=== PATIENT | male | born 1935 | race Caucasian/White ===

== ENCOUNTER 2017-06-29 22:51 | Inpatient (IN) | payer MEDICARE, BC ==
[~2017-06-29] VITALS: Ht 167.6 cm; Wt 74.2 kg
--- NOTE | 2017-06-29 23:14 | EKG ---
[address] [address] Test Date: 2017-06-29 Test Time: 23:03:03 Pat Name: TEVIN MONTENEGRO Department: Room: Gender: M Solar Sales Advisor: ELINA : 1935 Requested By: HYUN CLAIRE Order Number: [id number] Reading MD: Measurements Intervals Olivia Rate: 121 P: NE: QRS: -62 QRSD: 116 T: 95 QT: 340 QTc: 486 Interpretive Statements IRREGULAR RHYTHM, NO P-WAVE FOUND VENTRICULAR PREMATURE COMPLEX(ES) ABNORMAL LEFT AXIS DEVIATION R-S TRANSITION ZONE IN V LEADS DISPLACED TO THE LEFT QRS(T) CONTOUR ABNORMALITY CONSIDER ANTEROLATERAL MYOCARDIAL DAMAGE ABNORMAL ECG RI6.01 No previous ECG available for comparison
[2017-06-29] MEDS ORDERED: IV NORMAL SALINE 1,000ML 1,000 ML IV ONE (23:30)
[2017-06-29 23:54] LABS: BASO % 0 % (0-3); EOS # 0.2 x10^3/uL (0.0-0.7); EOS % 3 % (0-3); HEMATOCRIT 43.8 % (39.0-53.0); HEMOGLOBIN 14.8 g/dL (13.0-17.5); LYMPH # 3.5 x10^3/uL (1.0-4.8); LYMPH % 47 % (24-48); MEAN CORPUSCULAR HEMOGLOBIN 32 pg (25-35); MEAN CORPUSCULAR HGB CONC 34 g/dL (31-37); MEAN CORPUSCULAR VOLUME 95 fL (79-100); MONO # 0.7 x10^3/uL (0.0-1.1); MONO % 10 % (0-9); NEUT # 2.9 x10^3uL (1.8-7.7); NEUT % 40 % (31-73); PLATELET COUNT 146 x10^3/uL (140-400); RED CELL DISTRIBUTION WIDTH 13.7 % (11.5-14.5); WHITE BLOOD COUNT 7.4 x10^3/uL (4.0-11.0)
[2017-06-29 23:58] LABS: CREATININE 1.1 mg/dL (0.7-1.3); GFR 64.6; POTASSIUM 3.8 mmol/L (3.5-5.1)
--- NOTE | 2017-06-30 00:01 | PHYS DOC ---
Past History Past Medical History: A-Fib, Angina, CAD, Gallstones, High Cholesterol, Hypertension, AL Past Surgical History: Cholecystectomy, Coronary Bypass Surgery, Pacemaker Alcohol Use: None Drug Use: None Adult General Chief Complaint Chief Complaint: Palpitations HPI HPI 81-year-old male with an extensive cardiac history including known coronary artery disease with prior CABG, prior AL, pacemaker in place, atrial fibrillation on eliquis with which he is compliant. Patient was at his baseline at home when he perceived onset of palpitations and rapid heartbeat. When the heart rate seemed fast as patient had some very mild shortness of breath which is now resolved. He has an irregular mild tachycardia in triage. No chest pain at any time. No recent illness and patient otherwise feels baseline. Specifically he's had no recent exertional symptoms whatsoever Review of Systems Review of Systems Constitutional: Denies fever or chills [] Eyes: Denies change in visual acuity, redness, or eye pain [] HENT: Denies nasal congestion or sore throat [] Respiratory: Denies cough or shortness of breath [] Cardiovascular: No additional information not addressed in HPI [] GI: Denies abdominal pain, nausea, vomiting, bloody stools or diarrhea [] : Denies dysuria or hematuria [] Musculoskeletal: Denies back pain or joint pain [] Integument: Denies rash or skin lesions [] Neurologic: Denies headache, focal weakness or sensory changes [] Endocrine: Denies polyuria or polydipsia [] All other systems were reviewed and found to be within normal limits, except as documented in this note. Current Medications Current Medications Current Medications Medications (Trade) Dose Ordered Sig/Adonay Start Time Stop Time Status Last Admin Dose Admin Sodium Chloride 1,000 ml @ 125 mls/hr 1X ONCE 06/29/17 23:30 06/30/17 07:29 Allergies Allergies Allergies Coded Allergies Type Severity Reaction Last Updated Verified sotalol Allergy Intermediate Rash 06/29/17 Yes Physical Exam Physical Exam Well-appearing elderly male no acute distress. He has a mild tachycardia in the 120s with an irregularly irregular rhythm. His exam is otherwise completely benign Constitutional: Well developed, well nourished, no acute distress, non-toxic appearance. [] HENT: Normocephalic, atraumatic, bilateral external ears normal, oropharynx moist, no oral exudates, nose normal. [] Eyes: PERRLA, EOMI, conjunctiva normal, no discharge. [] Neck: Normal range of motion, no tenderness, supple, no stridor. [] Cardiovascular: As above Lungs & Thorax: Bilateral breath sounds clear to auscultation [] Abdomen: Bowel sounds normal, soft, no tenderness, no masses, no pulsatile masses. [] Skin: Warm, dry, no erythema, no rash. [] Back: No tenderness, no CVA tenderness. [] Extremities: No tenderness, no cyanosis, no clubbing, ROM intact, no edema. [] Neurologic: Alert and oriented X 3, normal motor function, normal sensory function, no focal deficits noted. [] Psychologic: Affect normal, judgement normal, mood normal. [] Current Patient Data Vital Signs Vital Signs Date Time Temp Pulse Resp B/P (MAP) Pulse Ox O2 Delivery O2 Flow Rate FiO2 06/29/17 22:55 98.0 130 20 94 Room Air EKG EKG EKG with irregularly irregular rhythm with a ventricular rate of 121. Left axis deviation and nonspecific ST and T-wave findings no STEMI interpreted by me.[] Radiology/Procedures Radiology/Procedures Chest x-ray with chronic changes sternal wires right diaphragmatic invagination and pacemaker in place with leads appearing to be continuous. No acute disease interpreted by me[] Course & Med Decision Making Course & Med Decision Making Pertinent Labs and Imaging studies reviewed. (See chart for details) Patient with atrial fibrillation with rapid ventricular response. Known history of atrial fibrillation for which patient is anticoagulated without gross. He has no evidence of acute coronary syndrome clinically. After initial valuation patient's heart rate spontaneously converted to a paced rhythm in the 70s. He continues to be asymptomatic as he was upon my exam initially. Full workup pending. Given patient's prehospital symptoms of dyspnea with initial symptoms, will anticipate inpatient admission for full workup, serial troponins, rate control and atrial fibrillation treatment as needed, and cardiology consultation. Patient remains stable on multiple re-evaluations prior to admission. Troponin borderline elevated at 0.06 however patient without any symptoms of acute coronary syndrome. 500 mL normal saline bolus will be administered to address borderline systolic blood pressure of 96. Case discussed with Dr. Hammond cardiology on-call for the patient's psychotherapist counselor Dr. Malone. Dr. Hammond states that their service does not provide consultative care at [facility] and he was informed of the details the case as a courtesy. Case discussed with Dr. Zhang hospitalist on-call who is aware the history and findings and agrees with inpatient admission to a telemetry bed for continued workup and care as well as consultation to Dr. ROACH in the morning. Critical care 38 minutes Dragon Disclaimer Dragon Disclaimer This electronic medical record was generated, in whole or in part, using a voice recognition dictation system. Departure Departure: Impression: Primary Impression: Atrial fibrillation with rapid ventricular response Additional Impression: Heart palpitations Disposition: ADMITTED INPATIENT Admitting Physician: Kenrick Zhang Condition: IMPROVED Referrals: PCP,UNKNOWN (PCP) Problem Qualifiers HYUN CLAIRE MD Jun 30, 2017 00:01
[2017-06-30] MEDS ORDERED: ASPIRIN 81 MG TAB.CHEW ONE (00:50)
[2017-06-30] MEDS ORDERED: IV NORMAL SALINE 500ML 500 ML IV ONE (01:00)
[2017-06-30] MEDS ORDERED: IV NORMAL SALINE 1,000ML 1,000 ML IV ONE (01:00)
[2017-06-30] MEDS ORDERED: ASPIRIN 81 MG TAB.CHEW PO ONE (01:00)
[2017-06-30] MEDS ORDERED: IV NORMAL SALINE 1,000ML 500 ML IV ONE (01:00)
--- NOTE | 2017-06-30 01:14 | EKG ---
[address] [address] Test Date: 2017-06-29 Test Time: 23:17:28 Pat Name: TEVIN MONTENEGRO Department: Room: Gender: M River Rafting Guide: ELINA : 1935 Requested By: HYUN CLAIRE Order Number: [id number] Reading MD: Measurements Intervals [place] Rate: 73 P: 0 PA: 78 QRS: -99 QRSD: 198 T: 95 QT: 426 QTc: 473 Interpretive Statements SINUS RHYTHM ATRIAL PREMATURE COMPLEX(ES) ABNORMAL RIGHT SUPERIOR AXIS DEVIATION NON SPECIFIC INTRAVENTRICULAR BLOCK RVH WITH REPOLARIZATION ABNORMALITY QRS(T) CONTOUR ABNORMALITY CONSISTENT WITH INFERIOR INFARCT POSSIBLY RECENT ABNORMAL ECG RI6.01 No previous ECG available for comparison
[2017-06-30] MEDS ORDERED: ONDANSETRON PF 4 MG/2 ML VIAL. IV PRN (01:15)
[2017-06-30 02:02] VITALS: BP 105/74
[2017-06-30] MEDS ORDERED: APIX5TAB3 PO (02:54)
[2017-06-30] MEDS ORDERED: ATOR20TA PO (02:54)
[2017-06-30] MEDS ORDERED: MULT1TAB97 PO (02:54)
[2017-06-30] MEDS ORDERED: DIPH25CA58 PO (02:54)
[2017-06-30] MEDS ORDERED: EZET10TA18 PO (02:54)
[2017-06-30] MEDS ORDERED: LISI2.5T PO (02:54)
[2017-06-30] MEDS ORDERED: CARV12.5 PO (02:54)
[2017-06-30] MEDS: IV NORMAL SALINE 1,000ML 1,000 ML IV SCH ×2 (04:03→09:23)
[2017-06-30 05:08] VITALS: BP 101/67
--- NOTE | 2017-06-30 08:16 | RAD ---
AP portable chest radiograph 06/29/2017 Clinical History: History of heart disease. Pacemaker. An AP portable erect digital radiograph of the chest was obtained. Comparison is made to a CT scan of the chest dated 03/23/2009. Surgical changes are seen consistent with a CABG procedure. A pacemaker overlies the right anterior chest. Leads extends to overlie the right atrium and right ventricle of the heart. Cardiac silhouette is mildly enlarged. The thoracic aorta is tortuous. Atherosclerotic calcification of the thoracic aorta is seen. No acute pulmonary infiltrate is seen. No pleural effusion or pneumothorax is noted. Degenerative changes are seen involving the thoracic spine and both shoulders. Impression: No acute abnormality is seen.
[2017-06-30] MEDS ORDERED: MULTIVITAMIN with MINERAL TABLET. PO SCH (09:00)
[2017-06-30] MEDS ORDERED: APIXABAN 5 MG TABLET. PO SCH (09:00)
[2017-06-30] MEDS ORDERED: LISINOPRIL 2.5 MG TABLET PO SCH (09:00)
[2017-06-30] MEDS ORDERED: CARVEDILOL 12.5 MG TABLET PO SCH (09:30)
[2017-06-30 11:22] VITALS: BP 101/65
--- NOTE | 2017-06-30 11:53 | PDOC2 ---
CONSULT Date of Admission DATE: 06/30/17 TIME: 11:53 Reason for Consult: Atrial fibrillation Referring Physician: Dr. Zhang Chief Complaint Funny feeling in chest Source: Chart review, Patient Problem List Problems Medical Problems: (1) Atrial fibrillation with rapid ventricular response Status: Acute (2) Heart palpitations Status: Acute History of Present Illness 81-year-old male with history of coronary artery disease s/p coronary artery bypass surgery in 2008 and permanent pacemaker implantation in 2009 who usually follows with Dr. Trinidad from [facility] presented stating that he had a funny feeling in chest and was found to be in atrial fibrillation with rapid ventricular response. He converted to sinus rhythm spontaneously in the ED. He is presently feeling much better. He denied any orthopnea/PND, chest pain or syncope. Past Medical History Paroxysmal atrial fibrillation Hypertension Hyperlipidemia Coronary artery disease s/p CABG Sick sinus syndrome s/p permanent pacemaker implantation (? Biventricular pacemaker/CLINICAL AUDIOLOGIST-P based on patient's description of the device) Benign prostatic hypertrophy Past Surgical History Coronary artery bypass surgery Family History Not contributory Social History Patient is a nondrinker and nonsmoker Current Medications Current Medications Sodium Chloride 1,000 ml @ 125 mls/hr 1X ONCE IV Last administered on at 23:45; Start 06/29/17 at 23:30; Stop 06/30/17 at 07:29; Status DC Aspirin (Children'S Aspirin) 81 mg STK-MED ONCE .ROUTE ; Start 06/30/17 at 00:50 ; Stop 06/30/17 at 00:51; Status DC Aspirin (Children'S Aspirin) 324 mg 1X ONCE PO Last administered on 06/30/17at 00:57; Start 06/30/17 at 01:00; Stop 06/30/17 at 01:17; Status DC Sodium Chloride 500 ml @ 500 mls/hr 1X ONCE IV Last administered on at 00:57; Start 06/30/17 at 01:00; Stop 06/30/17 at 01:59; Status DC Sodium Chloride 1,000 ml @ 1,000 mls/hr 1X ONCE IV ; Start 06/30/17 at 01:00; Stop 06/30/17 at 01:59; Status DC Sodium Chloride 500 ml @ 500 mls/hr 1X ONCE IV ; Start 06/30/17 at 01:00; Stop 06/30/17 at 01:59; Status DC Ondansetron HCl (Zofran) 4 mg PRN Q4HRS PRN IV NAUSEA/VOMITING; Start 06/30/17 at 01:15; Stop 07/01/17 at 01:14 Sodium Chloride 1,000 ml @ 125 mls/hr Q8H IV Last administered on 06/30/17at 09 :23; Start 06/30/17 at 01:30; Stop 07/01/17 at 01:29 Apixaban (Eliquis) 5 mg BID PO Last administered on 06/30/17at 09:20; Start at 09:00 Atorvastatin Calcium (Lipitor) 20 mg QHS PO ; Start 06/30/17 at 21:00 Carvedilol (Coreg) 12.5 mg BIDWMEALS PO Last administered on 06/30/17at 09:24; Start 06/30/17 at 09:30 Diphenhydramine HCl (Benadryl) 25 mg QHS PO ; Start 06/30/17 at 21:00 EZETIMIBE (Zetia) 10 mg QHS PO ; Start 06/30/17 at 21:00 Lisinopril (Prinivil) 2.5 mg BID PO Last administered on 06/30/17at 09:20; Start 06/30/17 at 09:00 Multivitamins/ Calcium (Thera-M Plus) 1 tab DAILY PO Last administered on at 09:20; Start 06/30/17 at 09:00 Active Scripts Active Reported Daily Multiple Vitamin (Multivitamin) 1 Each Tablet 1 Each PO DAILY Lisinopril 2.5 Mg Tablet 2.5 Mg PO BID Zetia (Ezetimibe) 10 Mg Tablet 10 Mg PO QHS Eliquis (Apixaban) 5 Mg Tablet 5 Mg PO BID Coreg (Carvedilol) 12.5 Mg Tablet 12.5 Mg PO BIDWMEALS Benadryl (Diphenhydramine Hcl) 25 Mg Capsule 20 Mg PO QHS Lipitor (Atorvastatin Calcium) 20 Mg Tablet 20 Mg PO QHS Allergies: Coded Allergies: sotalol (Verified Allergy, Intermediate, Rash, 06/29/17) also swelling PSYCHOLOGICAL ROS: No: Hallucinations Eyes: No: Loss of vision HEENT: No: Epistaxis Respiratory: No: Hemoptysis, Shortness of breath Cardiovascular: yes: Palpitations, No: Chest Pain Gastrointestinal: No: Vomiting, Diarrhea Genitourinary: No: [place] Neurological: No: Seizures Skin: No: Rash General: Alert, No acute distress HEENT: Atraumatic, PERRLA Lungs: Clear to auscultation Heart: Regular rate Abdomen: Soft, No tenderness Extremities: No edema Psych/Mental Status: Mood NL VITALS Vital Signs Date Time Temp Pulse Resp B/P (MAP) Pulse Ox O2 Delivery O2 Flow Rate FiO2 06/30/17 11:22 98.3 70 20 101/65 (77) 96 Room Air Labs Laboratory Tests Test 06/29/17 23:40 06/30/17 04:05 06/30/17 07:20 White Blood Count 7.4 x10^3/uL (4.0-11.0) Red Blood Count 4.60 x10^6/uL (4.30-5.70) Hemoglobin 14.8 g/dL (13.0-17.5) Hematocrit 43.8 % (39.0-53.0) Mean Corpuscular Volume 95 fL (79-100) Mean Corpuscular Hemoglobin 32 pg (25-35) Mean Corpuscular Hemoglobin Concent 34 g/dL (31-37) Red Cell Distribution Width 13.7 % (11.5-14.5) Platelet Count 146 x10^3/uL (140-400) Neutrophils (%) (Auto) 40 % (31-73) Lymphocytes (%) (Auto) 47 % (24-48) Monocytes (%) (Auto) 10 % (0-9) Eosinophils (%) (Auto) 3 % (0-3) Basophils (%) (Auto) 0 % (0-3) Neutrophils # (Auto) 2.9 x10^3uL (1.8-7.7) Lymphocytes # (Auto) 3.5 x10^3/uL (1.0-4.8) Monocytes # (Auto) 0.7 x10^3/uL (0.0-1.1) Eosinophils # (Auto) 0.2 x10^3/uL (0.0-0.7) Basophils # (Auto) 0.0 x10^3/uL (0.0-0.2) Sodium Level 143 mmol/L (136-145) Potassium Level 3.8 mmol/L (3.5-5.1) Chloride Level 104 mmol/L (98-107) Carbon Dioxide Level 30 mmol/L (21-32) Anion Gap 9 (6-14) Blood Urea Nitrogen 19 mg/dL (8-26) Creatinine 1.1 mg/dL (0.7-1.3) Estimated GFR (Cockcroft-Gault) 64.6 Glucose Level 104 mg/dL (70-99) Calcium Level 9.0 mg/dL (8.5-10.1) Troponin I Quantitative 0.060 ng/mL (0-0.055) 0.064 ng/mL (0-0.055) 0.070 ng/mL (0-0.055) Assessment/Plan 1. Paroxysmal atrial fibrillation presenting with atrial fibrillation with RVR , presently in paced rhythm. Continue Eliquis for stroke prophylaxis. Patient would benefit from either amiodarone for antiarrhythmic therapy or EP referral for ablation therapy. I would defer this to his primary chainstitch hemmer Dr. Trinidad who he is already scheduled to see later this week. 2. Coronary artery disease s/p coronary artery bypass surgery, clinically stable. Slight troponin elevation probably secondary to RVR. Doubt ACS. Ischemic evaluation the formal stress test could be considered as an outpatient if not done recently. Continue current secondary prevention measures. 3. Sick sinus syndrome s/p permanent pacemaker (? CLINICAL AUDIOLOGIST-P) implantation, clinically stable 4. Hypertension: Well-controlled 5. Hyperlipidemia: Statins Thank you for your consultation Problems: HOMER ROACH MD Jun 30, 2017 11:53
--- NOTE | 2017-06-30 12:53 | HP ---
ADMIT DATE: 06/30/2017 HISTORY OF PRESENT ILLNESS: The patient is a 81-year-old male patient who came to the Emergency Room complaining that he felt funny and that his heart rate seemed to be fast. He also has some very mild shortness of breath and he basically went to check his blood pressure and heart rate and found both of them to be elevated and he came to the Emergency Room where he was found to be in atrial fibrillation with rapid ventricular response that has reverted back spontaneously and was admitted as his troponin was slightly elevated. The patient himself denied any chest pain, denied any nausea or vomiting. Denied any diaphoresis. Did complain of mild shortness of breath. The patient was admitted to do 2 more sets of cardiac enzyme and to check his fasting lipid profile and to consult the cardiology team. He is normally followed by Dr. Trinidad's group. PAST MEDICAL HISTORY: Significant for atrial fibrillation, hyperlipidemia, hypertension, coronary artery disease status post myocardial infarction with stent deployment x 2 in 2006. He underwent coronary artery bypass graft surgery in 2008 and he has also sick sinus syndrome for which he had a permanent pacemaker in 2009. 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 PAST SURGICAL HISTORY: Significant for PCI and stent deployment x 2, coronary artery bypass graft surgery, permanent pacemaker placement and cholecystectomy in 2011. ALLERGIES: HE IS ALLERGIC TO SOTALOL WHICH DEVELOPED RASH. MEDICATIONS: He is currently on following medications: Diphenhydramine 25 mg at bedtime, apixaban 5 mg twice a day, Zetia 10 mg once a day, atorvastatin calcium 20 mg at bedtime, carvedilol 12.5 mg twice a day with meals, lisinopril 2.5 mg twice a day, multivitamin one tablet once a day. FAMILY HISTORY: He has one brother who is older and at the age of 52 because of myocardial infarction. His younger sister has multiple TIAs and congestive heart failure. His father at the age of 53 because of stomach cancer and mother at age of 65 because of ruptured cerebral aneurysm. SOCIAL HISTORY: He is . His about 2 years ago. He lives alone. He never smoked. He did not drink alcohol over 40 years. He used to work in a [employer] and has retired at the age of 59. REVIEW OF SYSTEMS: The patient denied any blurring of vision. He has cataracts, but denied any glaucoma or macular degeneration. Denied any earache, tinnitus, but he has severe sensorineural deafness. He has hearing aids. Denied any nosebleeds, stuffy nose or postnasal drip. Denied any sore throat, sore tongue, toothache, hoarseness of voice or difficulty swallowing. Denied any nausea, vomiting, diarrhea or constipation. Denied any hematemesis, melena, hematochezia. Denied any dysuria, frequency or hematuria. Denied any chest pain, shortness of breath, orthopnea, paroxysmal nocturnal dyspnea. Denied any cough, phlegm, hemoptysis. Denied any dizziness, lightheadedness, or vertigo. Denied any chills, rigors or fever. PHYSICAL EXAMINATION: VITAL SIGNS: On arrival to the Emergency Room, his heart rate was 130, blood pressure was 116/88, temperature was 98, respiratory rate 20, and oxygen saturation was 94% on room air. HEENT: Showed normocephalic, atraumatic. NECK: Supple. HEART: Showed normal first and second heart sounds with no gallop, rub or murmur. CHEST: Clear to auscultation. No crepitation or rhonchi. ABDOMEN: Distended, soft, nontender. No guarding or rigidity. No organomegaly. Hernial orifice intact. Bowel sounds normal. NEUROLOGIC: He was hard of hearing, but otherwise all cranial nerves intact. EXTREMITIES: He moves extremities without difficulty, apparently ambulates without assistance or assistive devices. He normally walks two miles daily if the weather permits. LABORATORY DATA: In the Emergency Room showed a white cell count of 7400, hemoglobin 14.8, hematocrit 44, MCV 95, platelet count of 146,000. Serum sodium 143, potassium 3.8, chloride 104, bicarbonate 30, anion gap of 9, BUN 19, creatinine 1.1, estimated GFR was 64 mL per minute, his glucose was 104, calcium was 9. He has 3 sets of cardiac enzyme showed that the troponin was slightly elevated at 0.06, 0.064 and 0.07. His chest x-ray showed that the surgical changes are seen consistent with CABG procedure and pacemaker overlies the right anterior chest, leads overlie the right atrium and right ventricle of the heart. The cardiac silhouette is mildly enlarged. Thoracic aorta is tortuous. Atherosclerotic calcification of the thoracic aorta is seen. No acute pulmonary infiltrate is seen. No pleural effusion or pneumothorax is noted. Degenerative changes are seen involving the thoracic spine and both shoulders. IMPRESSION: In summary, this is a 81-year-old male patient who basically came with new onset of atrial fibrillation with rapid ventricular response that has terminated spontaneously while in the Emergency Room; however, his first set of cardiac enzyme was elevated and was admitted to intensive care unit to consult the cardiology team as he has a mildly elevated troponin x 3. The patient said that he has a stress test done recently with adjustment of his pacemaker and that ejection fraction was low; however, he was not very specific as to whether they recommended any cardiac catheterization or not. PLAN: My plan is to basically wait for the cardiac team evaluation. We did consult Dr. Mahoney and we will check his fasting lipid profile tomorrow morning and decide on further management accordingly. ANABELL GIORDANO MD DR: SANDRINE/jhonny JOB#: [id number] / [id number]
[2017-06-30] MEDS ORDERED: ATORVASTATIN CALCIUM 20 MG TABLET PO SCH (21:00)
[2017-06-30] MEDS ORDERED: EZETIMIBE 10 MG TABLET PO SCH (21:00)
[2017-06-30] MEDS ORDERED: diphenhydrAMINE HCL 25 MG CAPSULE PO SCH (21:00)
== END 2017-06-30 15:41 | disposition home or self-care (01) | DRG 310 ==
LOC: ER 22:51 → ICU 06-30 00:58
PROVIDERS: ADMIT Internal Medicine; ATTEND Internal Medicine
DX: I48.0 Paroxysmal atrial fibrillation (principal); H90.5 Unspecified sensorineural hearing loss; Z95.1 Presence of aortocoronary bypass graft; E78.5 Hyperlipidemia, unspecified; I10 Essential (primary) hypertension; I25.10 Atherosclerotic heart disease of native coronary artery without angina pectoris; N40.0 Benign prostatic hyperplasia without lower urinary tract symptoms; H26.9 Unspecified cataract; Z60.2 Problems related to living alone; Z88.8 Allergy status to other drugs, medicaments and biological substances; I25.2 Old myocardial infarction; Z80.0 Family history of malignant neoplasm of digestive organs; Z82.49 Family history of ischemic heart disease and other diseases of the circulatory system; Z90.49 Acquired absence of other specified parts of digestive tract; Z95.0 Presence of cardiac pacemaker; Z97.4 Presence of external hearing-aid; Z95.5 Presence of coronary angioplasty implant and graft; Z82.3 Family history of stroke
CPT/HCPCS: 36415; 71045; 80048; 84484; 85025; 87641; 93005; 96360; 96361; J7040; 99291-25; J7030

== ENCOUNTER → 2020-12-27 13:15 | Emergency (ER) | payer BC, MEDICARE ==
[~2020-12-27] VITALS: Ht 165.1 cm; Wt 68.0 kg
[~2020-12-27 13:15] MED LIST: APIX5TAB3 PO; ATOR20TA PO; CARV12.5 PO; DIPH25CA58 PO; EZET10TA20 PO; HYDR-2155 PO; LISI2.5T12 PO; MULT1TAB97 PO
[2020-12-27 13:58] VITALS: BP 131/78
--- NOTE | 2020-12-27 14:44 | PHYS DOC ---
Past History Past Medical History: A-Fib, Angina, CAD, Gallstones, High Cholesterol, Hypertension, [place] Additional Past Medical Histor: stemi, triple bypass, pacemaker (JARAD MILLER APRN) Past Surgical History: No Surgical History (JARAD MILLER APRN) Alcohol Use: None Drug Use: None (JARAD MILLER APRN) General Adult EDM: Chief Complaint: SHOULDER INJURY HPI: HPI: Patient is an 85-year-old male being seen in the ER for right shoulder pain. Patient states that he fell off a ladder approximately 5 feet up and onto his right shoulder on . Patient denies hitting his head or losing consciousness, head or neck pain, vision changes, nausea or vomiting. He is reporting pain to his right shoulder, clavicle. Patient takes Eliquis for A. fib. (JARAD MILLER APRN) Review of Systems: Review of Systems: 14 body systems of the review of systems have been reviewed. See HPI for pertinent positive and negative responses, otherwise all other systems are negative, nonpertinent or noncontributory (JARAD MILLER APRN) Allergies: Allergies: Allergies Coded Allergies Type Severity Reaction Last Updated Verified sotalol Allergy Intermediate Rash 06/29/17 Yes (JARAD MILLER APRN) Physical Exam: PE: Constitutional: Well developed, well nourished, no acute distress, non-toxic appearance. [] HENT: Normocephalic, atraumatic, bilateral external ears normal, oropharynx moist, no oral exudates, nose normal. [] Eyes: PERRL, EOMI, conjunctiva normal, no discharge. [] Neck: Normal range of motion, no bony cervical spinal tenderness, supple, no stridor. [] Cardiovascular:Heart rate regular rhythm, no murmur [] Lungs & Thorax: Bilateral breath sounds clear to auscultation, no chest wall pain with palpation [] Abdomen: Bowel sounds normal, soft, no tenderness, no masses, no pulsatile masses. [] Skin: Warm, dry, no erythema, no rash. [] Back: No bony spinal tenderness, normal range of motion Extremities: No tenderness, no cyanosis, no clubbing, ROM intact, no edema, no hip or lower extremity pain with palpation, right shoulder: No obvious def ormity, no wounds, no crepitus with palpation, limited range of motion of shoulder due to pain, neurovascularly intact. [] Neurologic: Alert and oriented X 3, normal motor function, normal sensory function, no focal deficits noted. [] Psychologic: Affect normal, judgement normal, mood normal. [] (JARAD MILLER APRN) Current Patient Data: Vital Signs: Vital Signs Date Time Temp Pulse Resp B/P (MAP) Pulse Ox O2 Delivery O2 Flow Rate FiO2 12/27/20 13:58 98.3 70 15 131/78 (95) 100 Room Air (JARAD MILLER APRN) EKG: EKG: [] (JARAD MILLER APRN) Radiology/Procedures: Radiology/Procedures: []REASON: FELL 6 FT FROM LADDER, LANDED ON RIGHT SHOULDER, PAIN PROCEDURE: SHOULDER 2+V RIGHT EXAMINATION: Right shoulder radiograph. VIEWS: 3 COMPARISON: None INDICATION:85 years, Male, fell 6 feet from ladder, right shoulder pain. FINDINGS: No acute fracture, dislocation or subluxation. No bone erosion or periosteal reaction. No soft tissue swelling. Right chest wall pacemaker device. IMPRESSION: No acute osseous process. Electronically signed by: Tori Hernandez MD (12/27/2020 2:47 PM) [facility] DICTATED AND SIGNED BY: TORI HERNANDEZ MD DATE: 12/27/20 1446 CC: SRINIVASA COSTA MD; JAJA SUBRAMANIAN DO; JARAD MILLER APRN ~MTH0 0 PROCEDURE: CT HEAD AND CERVICAL SPINE WO EXAM: CT head and cervical spine without contrast INDICATION: Trauma, fell 6 feet from ladder. Right-sided neck pain COMPARISON: None TECHNIQUE: Axial CT imaging through the head and cervical spine without intravenous contrast. Sagittal and coronal reformats were obtained. One or more of the following individualized dose reduction techniques were utilized for this examination: 1. Automated exposure control 2. Adjustment of the mA and/or kV according to patient size 3. Use of iterative reconstruction technique. FINDINGS: CT head: The ventricles and sulci are moderately enlarged. There is moderate periventricular and patchy deep white matter hypoattenuation. No intracranial hemorrhage, acute infarct, or mass lesion. The calvarium is intact. Paranasal sinuses and mastoid air cells are clear. Globes and orbits are intact. CT cervical spine: There is no acute fracture. The bones are diffusely demineralized. There is 3 mm anterolisthesis of C7 on T1. Moderate disc space narrowing at C5-C6 and C6-C7 with anterior osteophytes. There are is severe multilevel facet arthrosis with very degrees of foraminal narrowing. Small disc osteophyte complexes at multiple levels. Prevertebral soft tissue is normal. IMPRESSION: 1. No acute intracranial abnormality. 2. No acute osseous abnormality of the cervical spine. 3. Moderate volume loss and white matter disease. 4. Multilevel degenerative disc disease and facet arthrosis. Electronically signed by: Suzette Cronin MD (12/27/2020 2:57 PM) [id number] DICTATED AND SIGNED BY: SUZETTE CRONIN MD DATE: 12/27/20 144 CC: SRINIVASA COSTA MD; JAJA SUBRAMANIAN DO; JARAD MILLER APRN ~MTH0 0 (JARAD MILLER APRN) Heart Score: C/O Chest Pain: No Risk Factors: Risk Factors: DM, Current or recent (<one month) smoker, HTN, HLP, family history of CAD, obesity. Risk Scores: Score 0 - 3: 2.5% MACE over next 6 weeks - Discharge Home Score 4 - 6: 20.3% MACE over next 6 weeks - Admit for Clinical Observation Score 7 - 10: 72.7% MACE over next 6 weeks - Early Invasive Strategies (JARAD MILLER APRN) Course & Med Decision Making: Course & Med Decision Making Pertinent Labs and Imaging studies reviewed. (See chart for details) [] Patient is an 85-year-old male being seen in the ER for right shoulder, clavicle pain after falling off a 5 foot ladder.. Work-up in the ER consisted of a CT scan of his head and neck which showed no acute findings but degenerative changes. An x-ray was performed of his right shoulder and clavicle that showed no acute findings. Patient advised to take ibuprofen for pain. Patient discharged with pain medication. Sling placed in the ER. Patient advised to follow-up with primary care provider. I discussed with patient all findings and diagnostic testing as well as the need to follow-up with PCP for further evaluation and treatment or return to the ER if any new or worsening symptoms. Strict return precautions were also discussed at length. Patient voiced understanding and agreement with the plan. Patient is hemodynamically stable at the time of disposition. (JARAD MILLER APRN) Dragon Disclaimer: Dragon Disclaimer: This electronic medical record was generated, in whole or in part, using a voice recognition dictation system. (JARAD MILLER APRN) Attending Co-Sign The patient was seen and interviewed as well as examined at the bedside. The chart was reviewed. The case was discussed. Agree with the plan of care. (NICOLA ARTEAGA DO) Departure Departure: Impression: Primary Impression: Fall Qualified Codes: W19.XXXA - Unspecified fall, initial encounter Additional Impression: Shoulder pain Qualified Codes: M25.511 - Pain in right shoulder Disposition: HOME / SELF CARE / HOMELESS Condition: GOOD Referrals: SRINIVASA COSTA MD (PCP) Patient Instructions: Shoulder Pain Additional Instructions: You were seen in the ER today for right shoulder and clavicle pain after fallin g. An x-ray was performed of your right shoulder and clavicle and it was negative for any fracture. We also had a scan performed of your head and neck that was negative for any acute findings. Your arm was placed in a sling that you can wear for comfort. You can take ibuprofen for mild pain. You are being discharged home with the pain medication for severe pain. This medication is called [place]. This medication is hydrocodone and Tylenol combination tablet. Please not take any additional Tylenol with this medication. This medication is sedating. Do not take this when you need to be alert, driving a vehicle and do not take with alcohol. This medication may cause GI upset so take with food and it may cause constipation. Please follow-up with your primary care provider tomorrow regarding your ER visit. If you develop worsening of your pain or any new or concerning symptoms please return to the ER. EMERGENCY DEPARTMENT GENERAL DISCHARGE INSTRUCTIONS Thank you for coming to [facility] (ED) today and trusting us with you care. We trust that you had a positivie experience in our Emergency Department. If you wish to speak to the department management, you may call the director at [phone]. YOUR FOLLOW UP INSTRUCTIONS ARE FOLLOWS: 1. Do you have a private Doctor? If you do not have a private doctor, please ask for a resource list of physicians or clinics that may be able to assist you with follow up care. 2. The Emergency Physician has interpreted your x-rays. The X-Ray specialist will also review them. If there is a change in the findings, you will be notified in 48 hours when at all possible. 3. A lab test or culture has been done, your results will be reviewed and you will be notified if you need a change in treatment. ADDITIONAL INSTRUCTIONS AND INFORMATION: 1. Your care today has been supervised by a physician who is specially trained in emergency care. Many problems require more than one evaluation for a complete diagnosis and treatment. We recommend that you schedule your follow up appointment as recommended to ensure complete treatment of you illness or injury. If you are unable to obtain follow up care and continue to have a problem, or if your condition worsens, we recommend that you return to the ED. 2. We are not able to safely determine your condition over the phone nor are we able to give sound medical advice over the phone. For these safety reasons, if you call for medical advice we will ask you to come to the ED for further evaluation. 3. If you have any questions regarding these discharge instructions please call the ED at [phone]. SAFETY INFORMATION: In the interest of safety, wellness, and injury prevention; we encourage you to wear your sealbelt, if you smoke; quite smoking, and we encourage family to use a protective helmet for bicycling and other sporting events that present an increased risk for head injury. IF YOUR SYMPTOMS WORSEN OR NEW SYMPTOMS DEVELOP, OR YOU HAVE CONCERNS ABOUT YOUR CONDITION; OR IF YOUR CONDITION WORSENS WHILE YOU ARE WAITING FOR YOUR FOLLOW UP APPOINTMENT; EITHER CONTACT YOUR PRIMARY CARE DOCTOR, THE PHYSICIAN WHOSE NAME AND NUMBER YOU WERE GIVEN, OR RETURN TO THE ED IMMEDIATELY. Scripts Hydrocodone Bit/Acetaminophen (HYDROCODONE-APAP 5-325 ) 1 Each Tablet 1 TAB PO PRN Q6HRS PRN for PAIN for 2 Days, #8 TAB 0 Refills Prov: JARAD MILLER APRN 12/27/20 JARAD MILLER APRN Dec 27, 2020 14:44 NICOLA ARTEAGA DO Dec 27, 2020 17:39
--- NOTE | 2020-12-27 14:50 | RAD ---
EXAMINATION: Right shoulder radiograph. VIEWS: 3 COMPARISON: None INDICATION:85 years, Male, fell 6 feet from ladder, right shoulder pain. FINDINGS: No acute fracture, dislocation or subluxation. No bone erosion or periosteal reaction. No soft tissue swelling. Right chest wall pacemaker device. IMPRESSION: No acute osseous process. Electronically signed by: Harish Hernandez MD (12/27/2020 2:47 PM) [facility]
--- NOTE | 2020-12-27 15:00 | RAD ---
EXAM: CT head and cervical spine without contrast INDICATION: Trauma, fell 6 feet from ladder. Right-sided neck pain COMPARISON: None TECHNIQUE: Axial CT imaging through the head and cervical spine without intravenous contrast. Sagitta l and coronal reformats were obtained. One or more of the following individualized dose reduction techniques were utilized for this examinat ion: 1. Automated exposure control 2. Adjustment of the mA and/or kV according to patient size 3. Use of iterative reconstruction technique. FINDINGS: CT head: The ventricles and sulci are moderately enlarged. There is moderate periventricular and patchy deep w flaquita matter hypoattenuation. No intracranial hemorrhage, acute infarct, or mass lesion. The calvarium is intact. Paranasal sinuses and mastoid air cells are clear. Globes and orbits are intact. CT cervical spine: There is no acute fracture. The bones are diffusely demineralized. There is 3 mm anterolisthesis of C 7 on T1. Moderate disc space narrowing at C5-C6 and C6-C7 with anterior osteophytes. There are is sev ere multilevel facet arthrosis with very degrees of foraminal narrowing. Small disc osteophyte comple xes at multiple levels. Prevertebral soft tissue is normal. IMPRESSION: 1. No acute intracranial abnormality. 2. No acute osseous abnormality of the cervical spine. 3. Moderate volume loss and white matter disease. 4. Multilevel degenerative disc disease and facet arthrosis. Electronically signed by: Suzette Cronin MD (12/27/2020 2:57 PM) [id number]
== END | disposition home or self-care (01) ==
LOC: ER 13:15
DX: M25.511 Pain in right shoulder (principal); I48.91 Unspecified atrial fibrillation; I25.10 Atherosclerotic heart disease of native coronary artery without angina pectoris; E78.00 Pure hypercholesterolemia, unspecified; I10 Essential (primary) hypertension; I25.2 Old myocardial infarction; Z95.0 Presence of cardiac pacemaker; Z88.8 Allergy status to other drugs, medicaments and biological substances; W11.XXXA Fall on and from ladder, initial encounter; Y93.89 Activity, other specified; Y92.89 Other specified places as the place of occurrence of the external cause; Y99.8 Other external cause status
CPT/HCPCS: 70450; 72125; 73030; 96360; 99285-25